=== PATIENT | male | born 1975 | race Caucasian/White ===

== ENCOUNTER 2023-11-04 07:37 | Outpatient (CLI) | payer BC, OTHER ==
[2023-11-04 12:10] LABS: BASOPHILS % (AUTO) 0.7 %; EOSINOPHILS # (AUTO) 0.1 10^3/uL (0.0-0.7); EOSINOPHILS % (AUTO) 1.5 %; HCT - HEMATOCRIT 45.6 % (42.0-52.0); LYMPHOCYTES # (AUTO) 1.7 10^3/uL (1.5-3.5); LYMPHOCYTES % (AUTO) 37.9 %; MEAN CORPUSCULAR HEMOGLOBIN 30.1 pg (27.0-31.0); MEAN CORPUSCULAR HGB CONC 32.9 g/dL (32.0-36.0); MEAN CORPUSCULAR VOLUME 91.4 fL (80.0-94.0); MEAN PLATELET VOLUME 10.6 fL (7.4-11.4); MONOCYTES # (AUTO) 0.5 10^3/uL (0.0-1.0); MONOCYTES % (AUTO) 9.9 %; NEUTROPHILS # (AUTO) 2.3 10^3/uL (1.5-6.6); NEUTROPHILS % (AUTO) 49.8 %; PLT - PLATELET COUNT 265 10^3/uL (130-450); RED BLOOD COUNT 4.99 10^6/uL (4.70-6.10); RED CELL DISTRIBUTION WIDTH 12.2 % (12.0-15.0); WHITE BLOOD COUNT 4.6 x10^3/uL (4.8-10.8)
[2023-11-04 13:04] LABS: ALBUMIN 4.7 g/dL (3.2-5.5); ALBUMIN/GLOBULIN RATIO 1.6 (1.0-2.2); ALKALINE PHOSPHATASE 74 IU/L (42-121); ALT ALANINE AMINOTRANSFERASE 51 IU/L (10-60); AST ASPARTATE AMINOTRANSFERASE 24 IU/L (10-42); BILIRUBIN,TOTAL 2.5 mg/dL (0.2-1.0); BUN - BLOOD UREA NITROGEN 16 mg/dL (6-20); CALCIUM 9.9 mg/dL (8.5-10.3); CARBON DIOXIDE - CO2 30 mmol/L (21-32); CHLORIDE 106 mmol/L (101-111); CHOL/HDL RATIO 3.4 (<5.0); CHOLESTEROL 115 mg/dL; GFR - MDRD 80 (>89); GLUCOSE 110 mg/dL (74-104); HDL CHOLESTEROL 34 mg/dL; LDL CHOLESTEROL,CALCULATED 45 mg/dL; LDL/HDL RATIO 1.3 (<3.6); POTASSIUM 4.2 mmol/L (3.5-4.5); SODIUM 140 mmol/L (135-145); THYROID STIMULATING HORMONE 2.13 uIU/mL (0.34-5.60); TOTAL PROTEIN 7.7 g/dL (6.4-8.9); TRIGLYCERIDES 179 mg/dL (48-352); VLDL CHOLESTEROL 36 mg/dL
== END 2023-11-04 07:38 | disposition home or self-care (01) ==
LOC: LAB.N 07:37
PROVIDERS: ATTEND Physician Assistant
DX: E78.1 Pure hyperglyceridemia (principal); Z13.9 Encounter for screening, unspecified
CPT/HCPCS: 36415; 80053; 80061; 83721; 84443; 85025

== ENCOUNTER 2024-02-19 12:03 | Outpatient (CLI) | payer BC, OTHER ==
--- NOTE | 2024-02-19 17:48 | XRAY Report ---
PROCEDURE: Lumbar Spine 2-3V INDICATIONS: FOOT DROP, LEFT TECHNIQUE: 2 views of the lumbar spine were acquired. COMPARISON: None. FINDINGS: Bones: 5 [id number] vertebrae are present. Trace retrolisthesis L1 on 2, L2 on 3, L3 on 4, and L4 on 5. Mild to moderate disc height loss L3-4 and L4-5 and moderate disc height loss L5-S1. No vert ebral body compression fractures. No suspicious bony lesions. Soft tissues: Overlying bowel gas pattern is normal. No suspicious soft tissue calcifications. IMPRESSION: Multilevel spondylosis and trace spondylolisthesis. Consider MRI for further evaluation of central ca nal and neural foramina. Reviewed by: Zuleyka Mcdonnell MD on 02/19/2024 5:46 PM PDT Approved by: Zuleyka Mcdonnell MD on 02/19/2024 5:46 PM PDT Station ID: [id number]
== END 2024-02-19 12:04 | disposition home or self-care (01) ==
LOC: DI.N 12:03
PROVIDERS: ATTEND Physician Assistant
DX: M47.816 Spondylosis without myelopathy or radiculopathy, lumbar region (principal); M47.817 Spondylosis without myelopathy or radiculopathy, lumbosacral region; M43.16 Spondylolisthesis, lumbar region

== ENCOUNTER 2024-03-11 14:33 | Outpatient (CLI) | payer BC, OTHER ==
--- NOTE | 2024-03-14 21:32 | MRI Report ---
Lumbar Spine WO Clinical History: 48 years of age, Male, L FOOT DROP. Comparison: No priors available Technique: Multiplanar multisequence lumbar spine MRI without contrast was performed. Findings: Prior surgery: None. Vertebral bodies: Vertebral body heights are maintained. Alignment: Normal. Bone marrow: Unremarkable for age. Intervertebral discs: Multilevel disc bulge and disc desiccation. The conus medullaris is normal in contour, signal intensity, and location. The tip of the conus is at T12-L1. The following axial levels are detailed below: T12-L1: Mild bilateral facet arthropathy. No central canal stenosis. No right neuroforaminal stenosis . No left neuroforaminal stenosis. L1-L2: Mild bilateral facet arthropathy. No central canal stenosis. No right neuroforaminal stenosis. No left neuroforaminal stenosis. L2-L3: Mild bilateral facet arthropathy. No central canal stenosis. No right neuroforaminal stenosis. No left neuroforaminal stenosis. L3-L4: Disc bulge. Mild bilateral facet arthropathy. No central canal stenosis. No right neuroforamin al stenosis. No left neuroforaminal stenosis. L4-L5: Disc bulge. Moderate right, severe left facet arthropathy. No central canal stenosis. No right neuroforaminal stenosis. No left neuroforaminal stenosis. L5-S1: Disc bulge. Mild bilateral facet arthropathy. No central canal stenosis. No right neuroforamin al stenosis. Moderate left neuroforaminal stenosis. Visualized sacrum and pelvis: Visualized sacrum is intact. No abdominal aortic aneurysm. IMPRESSION: 1.Multilevel degenerative change of lumbar spine, most pronounced at L5-S1, where there is moderate l eft neuroforaminal stenosis. 2.No central canal stenosis of the lumbar spine. Reviewed by: Tanya Das MD on 03/14/2024 9:31 PM PDT Approved by: Tanya Das MD on 03/14/2024 9:31 PM PDT Station ID: [id number]
== END 2024-03-11 14:34 | disposition home or self-care (01) ==
LOC: DI 14:33
PROVIDERS: ATTEND Physician Assistant
DX: M47.816 Spondylosis without myelopathy or radiculopathy, lumbar region (principal); M51.36 Other intervertebral disc degeneration, lumbar region; M47.817 Spondylosis without myelopathy or radiculopathy, lumbosacral region; M51.37 Other intervertebral disc degeneration, lumbosacral region; M48.07 Spinal stenosis, lumbosacral region